=== PATIENT | male | born 1975 | race American Indian/Alaskan Native ===

== ENCOUNTER 2019-06-22 19:49 | Emergency (ER) | payer BC, MEDICAID ==
[2019-06-22] MEDS ORDERED: Clindamycin HCl 150 MG Cap PO ONE (19:50)
[2019-06-22] MEDS ORDERED: Ketorolac 10 MG Tab PO ONE (19:50)
[2019-06-22 19:53] VITALS: BP 174/90; PULSE 93
[2019-06-22] MEDS ORDERED: Take Home: Ketorolac 10 MG Tab, 4 Tab Pack PO ONE (20:09)
[2019-06-22] MEDS ORDERED: Take Home: Clindamycin HCl 150 MG Cap, 6 Cap Pack PO ONE (20:09)
--- NOTE | 2019-06-22 20:09 | EDM.PDOC ---
ED HPI GENERAL MEDICAL PROBLEM - General Chief Complaint: General Stated Complaint: broken tooth Time Seen by Provider: 06/22/19 20:02 Source of Information: Reports: Patient History Limitations: Reports: No Limitations - History of Present Illness INITIAL COMMENTS - FREE TEXT/NARRATIVE: in with c/o fx right lower molar x today, c/o dental pain, no trismus, no gum redness or swelling, no face swelling, no fever or chills, no other sx Onset: Today Location: Reports: Other (right lower molar) Quality: Reports: Ache Severity: Severe Improves with: Reports: None Worsens with: Reports: None Associated Symptoms: Reports: No Other Symptoms. Denies: Cough, Fever/Chills, Nausea/Vomiting, Weakness Treatments INSPECTOR LINE: Reports: Other (see below) (none) Tooth/Teeth Pain Score (Numeric/FACES): 10 - Related Data Allergies Allergy/AdvReac Type Severity Reaction Status Date / Time No Known Allergies Allergy Verified 06/22/19 19:54 Home Meds: Home Meds Albuterol Sulfate [Proventil Hfa] 6.7 gm IH ASDIRECTED PRN 12/23/14 [History] Budesonide/Formoterol Fumarate [Symbicort 80-4.5 MCG] 1 inhalation PO BID [History] Buprenorphine HCl/Naloxone HCl [Zubsolv 8.6-2.1 mg Tablet Sl] 1 tab PO BID 06/21 [History] Clindamycin HCl 150 mg PO TID 10 Days #30 capsule 06/22/19 [Rx] Ketorolac [Toradol] 10 mg PO TID PRN 5 Days #15 tab 06/22/19 [Rx] Omeprazole 1 tab PO DAILY 06/22/19 [History] Past Medical History HEENT History: Reports: Impaired Vision, Other (See Below) Other HEENT History: Glasses Cardiovascular History: Reports: None Respiratory History: Reports: None Genitourinary History: Reports: None Musculoskeletal History: Reports: Other (See Below) Other Musculoskeletal History: pins in left wrist years ago Neurological History: Reports: None Psychiatric History: Reports: Addiction, Anxiety, Depression, Emotional Problems , Mood Swings, Panic Attack, Suicide Attempt, Suicidal Ideation, Other (See Below) Other Psychiatric History: not on antidepressants Endocrine/Metabolic History: Reports: None Hematologic History: Reports: None Immunologic History: Reports: None Oncologic (Cancer) History: Reports: None Dermatologic History: Reports: None - Infectious Disease History Infectious Disease History: Reports: None - Past Surgical History Head Surgeries/Procedures: Reports: None GI Surgical History: Reports: Appendectomy Social & Family History - Family History Family Medical History: Noncontributory - Caffeine Use Caffeine Use: Reports: Coffee, Energy Drinks, Soda - Living Situation & Occupation Living situation: Reports: , with Spouse Occupation: Employed ED ROS GENERAL - Review of Systems Review Of Systems: See Below Constitutional: Reports: No Symptoms. Denies: Fever, Chills HEENT: Reports: Dental Pain. Denies: Ear Pain, Nose Pain, Sinus Problem, Throat Pain Respiratory: Reports: No Symptoms. Denies: Shortness of Breath Cardiovascular: Reports: No Symptoms GI/Abdominal: Reports: No Symptoms. Denies: Abdominal Pain, Nausea, Vomiting : Reports: No Symptoms Musculoskeletal: Reports: No Symptoms. Denies: Neck Pain, Back Pain Skin: Reports: No Symptoms. Denies: Rash, Erythema Neurological: Reports: No Symptoms. Denies: Headache Psychiatric: Reports: No Symptoms ED EXAM, GENERAL - Physical Exam Exam: See Below Exam Limited By: No Limitations General Appearance: Alert, WD/WN, No Apparent Distress Ears: Normal External Exam, Normal Canal, Hearing Grossly Normal, Normal TMs Nose: Normal Inspection, Normal Mucosa Throat/Mouth: Normal Inspection, Normal Lips, Normal Gums, Normal Oropharynx, Normal Voice, No Airway Compromise, Other (fx right lower molar). No: Normal Teeth Head: Atraumatic, Normocephalic Neck: Normal Inspection, Supple, Non-Tender, Full Range of Motion Respiratory/Chest: No Respiratory Distress, Lungs Clear, Normal Breath Sounds, Chest Non-Tender Cardiovascular: Normal Peripheral Pulses, Regular Rate, Rhythm, No Murmur Peripheral Pulses: 2+: Radial (L), Radial (R) GI/Abdominal: Soft, Non-Tender Back Exam: Normal Inspection, Full Range of Motion Extremities: Normal Inspection, Normal Range of Motion, Non-Tender, Normal Capillary Refill Neurological: Alert, Oriented, Normal Cognition, Normal Gait, No Motor/Sensory Deficits Psychiatric: Normal Affect, Normal Mood Skin Exam: Warm, Dry, Intact, Normal Color Course - Vital Signs Text/Narrative:: pt evaluated in the ED, has a fx right lower molar, has pain, was given Toradol and clindamycin, is to f/u with dentist in am Last Recorded V/S: Last Vital Signs Temp 36.5 C 06/22/19 19:51 Pulse 93 06/22/19 19:51 Resp 16 06/22/19 19:51 BP 174/90 H 06/22/19 19:51 Pulse Ox 96 06/22/19 19:51 - Orders/Labs/Meds Orders: Active Orders 24 hr Category Date Time Status Ketorolac [Take Home: Ketorolac 10 MG, 4 Tab Pack] Med 06/22/19 20:09 Once 1 packet PO ONETIME ONE clindamycin HCL [Take Home: Clindamycin HCl 150 MG, 6 Med 06/22/19 20:09 Once Cap Pack] 1 packet PO ONETIME ONE Departure - Departure Time of Disposition: 20:17 Disposition: Home, Self-Care 01 Condition: Good Clinical Impression: Acute pulpitis - Discharge Information *PRESCRIPTION DRUG MONITORING PROGRAM REVIEWED*: Not Applicable *COPY OF PRESCRIPTION DRUG MONITORING REPORT IN PATIENT SONJA: Not Applicable Prescriptions: Clindamycin HCl 150 mg PO TID 10 Days #30 capsule Ketorolac [Toradol] 10 mg PO TID PRN 5 Days #15 tab PRN Reason: Pain (Moderate 4-6) Instructions: Tooth Injuries Forms: ED Department Discharge Additional Instructions: follow up with your dentist, call in am for an appointment time return to the ER as needed clindamycin 150mg 3 x a day for 10 days ketorolac 10mg every 8 hours as needed for pain Sepsis Event Note - Evaluation Sepsis Screening Result: No Definite Risk - Focused Exam Vital Signs: Vital Signs Temp Pulse Resp BP Pulse Ox 06/22/19 19:51 36.5 C 93 16 174/90 H 96 Date Exam was Performed: 06/22/19 Time Exam was Performed: 20:11 - Problem List & Annotations (1) Acute pulpitis SNOMED Code(s): 1937393 Code(s): K04.01 - REVERSIBLE PULPITIS Status: Acute Priority: Medium Current Visit: Yes - Problem List Review Problem List Initiated/Reviewed/Updated: Yes - My Orders Last 24 Hours: My Active Orders 06/22/19 20:09 Ketorolac [Take Home: Ketorolac 10 MG, 4 Tab Pack] 1 packet PO ONETIME ONE clindamycin HCL [Take Home: Clindamycin HCl 150 MG, 6 Cap Pack] 1 packet PO ONETIME ONE - Assessment/Plan Last 24 Hours: My Active Orders 06/22/19 20:09 Ketorolac [Take Home: Ketorolac 10 MG, 4 Tab Pack] 1 packet PO ONETIME ONE clindamycin HCL [Take Home: Clindamycin HCl 150 MG, 6 Cap Pack] 1 packet PO ONETIME ONE Plan: as above
== END 2019-06-22 20:30 | disposition home or self-care (01) ==
LOC: CC.ED 19:49
DX: K04.01 Reversible pulpitis (principal); Z79.899 Other long term (current) drug therapy
CPT/HCPCS: 99282; A9270-GY